=== PATIENT | female | born 1945 | race Two or more races ===

== ENCOUNTER → 2016-03-21 | Outpatient (CLI) | payer OTHER, MEDICAID | LOC: BHLMT 13:15 | PROVIDERS: ATTEND Internal Medicine Interventional Cardiology | DX: I42.9 Cardiomyopathy, unspecified (principal) | CPT/HCPCS: 93306-PO ==

== ENCOUNTER → 2016-07-20 | Outpatient (CLI) | payer OTHER, MEDICAID | LOC: BHLMT 09:30 | PROVIDERS: ATTEND Internal Medicine Cardiovascular Disease | DX: I47.1 Supraventricular tachycardia (principal) | CPT/HCPCS: 93005-PO ==

== ENCOUNTER → 2017-02-20 | Outpatient (CLI) | payer OTHER, MEDICAID | LOC: BHFA 11:00 | PROVIDERS: ATTEND Internal Medicine Cardiovascular Disease | DX: R00.0 Tachycardia, unspecified (principal); I10 Essential (primary) hypertension ==

== ENCOUNTER → 2017-06-04 | Outpatient (CLI) | payer OTHER, MEDICAID | LOC: BHLMT 14:45 | PROVIDERS: ATTEND Internal Medicine Interventional Cardiology | DX: I42.9 Cardiomyopathy, unspecified (principal) | CPT/HCPCS: 93306-PO ==

== ENCOUNTER → 2017-08-08 | Outpatient (CLI) | payer OTHER, MEDICAID | LOC: BHLMT 15:30 | PROVIDERS: ATTEND Nurse Practitioner Family | DX: R07.9 Chest pain, unspecified (principal) | CPT/HCPCS: 93005-PO ==

== ENCOUNTER → 2017-08-15 | Outpatient (CLI) | payer OTHER, MEDICAID ==
[~2017-08-15] MED LIST: REGADENOSON 0.4 MG/5 ML SYR IVP ONE
--- NOTE | 2017-08-15 14:17 | CPR ---
[f rep st] NONINVASIVE CARDIAC PROCEDURE REPORT DATE OF PROCEDURE: 08/15/2017 PROCEDURE: Lexiscan nuclear stress test. REASON FOR TEST: Chest pain. She does have a pacemaker in place. Resting EKG shows a sinus paced rhythm. Resting heart rate 63, blood pressure 108/62, oxygen saturat ion 92%. EKG shows occasional PVC. STRESS PORT LEXISCAN NUCLEAR STRESS TEST: Lexiscan was injected rapidly, followed by saline flush. Cardiolite was then injected rapidly. She did feel tingly, especially on her left side after the inj ection. She had then felt nauseated. The symptoms did pass quickly. Her exercise heart rate was 82, blood pressure 116/68, oxygen saturation 95%. There were no signific ant EKG changes. She did have occasional PVCs during the test. RECOVERY: She did spontaneously recover. Resting recovery heart rate 80, resting blood pressure 120 /64, oxygen saturation 93%. All symptoms had subsided post test. She was given caffeine during [place] very. There were no significant EKG changes. At this time, she currently is stable for nuclear imaging. /[id number]/MODL
== END ==
LOC: FIMAGING 12:35
PROVIDERS: ATTEND Nurse Practitioner Family
DX: R07.9 Chest pain, unspecified (principal); E11.9 Type 2 diabetes mellitus without complications; I10 Essential (primary) hypertension; I42.0 Dilated cardiomyopathy; Z95.0 Presence of cardiac pacemaker
CPT/HCPCS: 78452; 93017; A9500; J2785

== ENCOUNTER → 2018-05-13 | Outpatient (CLI) | payer OTHER, MEDICAID | LOC: EDBD → FIMAGING 14:21 → MERGE 14:21 | PROVIDERS: ATTEND Internal Medicine Pulmonary Disease | DX: R06.00 Dyspnea, unspecified (principal); I51.7 Cardiomegaly; Z95.0 Presence of cardiac pacemaker ==

== ENCOUNTER → 2018-06-04 | Day surgery (SDC) | payer OTHER, MEDICAID ==
[~2018-06-04] MED LIST changes: +ACETAMINOPHEN 325 MG TAB PO PRN; +ASPIRIN EC 325 MG TAB PO ONE; +ATROPINE SULFATE 1 MG/10 ML SYR IVP PRN; +DIAZEPAM 5 MG TAB PO ONE; +FAMOTIDINE 20 MG TAB PO ONE; +HEPARIN 10,000 UNIT/10 ML MDV (1,000 UNIT/ML) ONE; +IOPAMIDOL (ISOVUE-370) 150 ML BTL IV ONE; +LIDOCAINE 1% 300 MG/30 ML SDV ONE; +MIDAZOLAM 2 MG/2 ML VIAL ONE; +NITROGLYCERIN 0.4 MG BTL SL PRN; +NS 1,000 ML IV SCH; +ONDANSETRON 4 MG/2 ML VIAL IVP PRN; -REGADENOSON 0.4 MG/5 ML SYR IVP ONE; +TEMAZEPAM 15 MG CAP PO PRN; +VERAPAMIL 5 MG/2 ML VIAL ONE; +diphenhydrAMINE 25 MG CAP PO ONE; +fentaNYL 100 MCG/2 ML INJ ONE
[2018-06-04 07:33] LABS: PLATELET COUNT 180 10^3/uL (150-400)
[2018-06-04 07:43] LABS: INR 1.04 (0.83-1.16); PROTIME(PATIENT) 13.2 SEC (12.0-15.0)
--- NOTE | 2018-06-04 09:19 | PDHPUP ---
History & Physical Update H&P update statement: This history and physical update is based on an assessment of the patient which was completed after admission or registration (within 24 hours), but prior to the surgery/procedure. H&P update: H&P reviewed & patient examined, no change in patient's condition since H&P completed
--- NOTE | 2018-06-04 09:19 | PDPROPOC ---
Sedation Plan of Care Sedation Plan of Care: vital signs stable, mental status noted, patient educated of risks, benefits, alternatives, patient can tolerate sedation ASA Classification: ASA 2 Planned drugs: fentanyl, midazolam Mallampati Score: Class 1 Mallampati Reference Image: Patient passed 3-3-2 rule?: Yes
--- NOTE | 2018-06-04 10:15 | PDDXCAT ---
Diagnostic Cath Note - . Date: 06/04/18 Paint Technician: Yasmeen Indication: other ([place] [employer] functional class 3/4 congestive heart failure. 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 Angiographically normal. LAD: Large caliber transapical vessel. Multiple small diagonal branches identified. Angiographically free of disease. LCX: Large caliber vessel with 2 small proximal obtuse marginal branches. Becomes diminutive within the AV groove in the mid vessel. Large 3rd obtuse marginal branch. Angiographically normal. RCA: Large caliber vessel. Gives rise to the PDA and several small posterolateral branches. Angiographically normal. LVEF: Dilated left ventricle with global hypokinesis and an ejection fraction of 20%. Wall motion: Severe global hypokinesis. 3 to 4+ mitral regurgitation. - Findings-Right Heart Catheterization RA: 5 mm Hg. RV: 60/-4/6 mmHg. PA: 58/15/32 mmHg. PAOP: 11 mmHg. There are no identified large V-waves. CO: 3.1 liters/minute. CI: 2.18 liters/minute per meter squared. Complications: None. Estimated blood loss: <50ml Closure method: manual pressure Assessment: 1. Angiographically normal epicardial coronary arteries. 2. Dilated left ventricle with severe left ventricular systolic dysfunction and an ejection fraction of 20% with severe global hypokinesis. 3. 3 to 4+ mitral regurgitation. 4. Moderate pulmonary hypertension in the setting of a well- compensated pulmonary artery occlusive pressure. 5. Reduced cardiac output. Plan: Will continue with maximal medical therapy. She will be followed up in the congestive Heart failure [facility] for consideration of advanced options for treatment. Intervention: None.
--- NOTE | 2018-06-04 11:22 | CPEKG ---
Test Reason : OPEN Blood Pressure : / mmHG Vent. Rate : 066 BPM Atrial Rate : 067 BPM P-R Int : 217 ms QRS Dur : 168 ms QT Int : 431 ms P-R-T Axes : 014 -69 077 degrees QTc Int : 452 ms Sinus rhythm Ventricular premature complex Borderline prolonged VA interval RBBB and LAFB Left ventricular hypertrophy Abnormal T, consider ischemia, lateral leads Confirmed by Dontrell Hamilton ([id number]) on 06/04/2018 11:22:07 AM Referred By: Prakash Arana Confirmed By:Dontrell Hamilton
== END | disposition still patient (30) ==
LOC: FCATH 06:44
PROVIDERS: ATTEND Internal Medicine Cardiovascular Disease
PROC: 4A023N8 Measurement of Cardiac Sampling and Pressure, Bilateral, Percutaneous Approach (ICD-10-PCS; principal; 2018-06-04)
PROC: B2111ZZ Fluoroscopy of Multiple Coronary Arteries using Low Osmolar Contrast (ICD-10-PCS; principal; 2018-06-04)
PROC: B2151ZZ Fluoroscopy of Left Heart using Low Osmolar Contrast (ICD-10-PCS; principal; 2018-06-04)
DX: R06.02 Shortness of breath (principal); I50.22 Chronic systolic (congestive) heart failure; I34.0 Nonrheumatic mitral (valve) insufficiency; I27.29 Other secondary pulmonary hypertension; I11.0 Hypertensive heart disease with heart failure; E11.9 Type 2 diabetes mellitus without complications; N18.3 Chronic kidney disease, stage 3 (moderate); Z95.810 Presence of automatic (implantable) cardiac defibrillator
CPT/HCPCS: J0461; J1200; J1644; J2250; J3010; Q9967